=== PATIENT | female | born 1990 | race Caucasian/White ===

== ENCOUNTER 2018-09-05 12:01 | Emergency (ER) | payer OTHER ==
[~2018-09-05] VITALS: Ht 160 cm; Wt 61.2 kg
[2018-09-05] MEDS ORDERED: ENSKYCE1 EACH PO (13:39)
[2018-09-05] MEDS ORDERED: PREDNISONE 20 M20 MG PO (14:28)
[2018-09-05 15:18] VITALS: BP 128/72
== END 2018-09-05 15:19 | disposition home or self-care (01) ==
LOC: ER 12:01
DX: L50.9 Urticaria, unspecified (principal); T78.1XXA Other adverse food reactions, not elsewhere classified, initial encounter; Z88.1 Allergy status to other antibiotic agents; Z88.8 Allergy status to other drugs, medicaments and biological substances